=== PATIENT | male | born 1945 | race Caucasian/White ===

== ENCOUNTER → 2020-09-28 | Day surgery (SDC) | payer MEDICARE, OTHER ==
[2020-09-28] VITALS (8 sets, daily range): BP systolic 129–152; BP diastolic 72–85
[~2020-09-28] VITALS: Ht 185.4 cm; Wt 79.4 kg
[~2020-09-28] MED LIST: Acetylcholine Injection (OR) ONE; BSS 15ml BTL ONE; BSS 500ml btl ONE; Bupivacaine 0.75% 30ml vial INJ ONE; Cyclopentolate 2% Opth Sol ONE; ELIQUIS5 MG ORAL; Goniotaire 2.5% Opth Soln - 15ml ONE; Kenalog-40 1ml Vial ONE; LR 1000ml 1,000 ML IVLG SCH; LR 1000ml ONE; Lidocaine 2% MPF 5ml Vial INJ ONE; MULTIVITAMINS1 EAC2 ORAL; Maxitrol Opth Oint 3.5gm ONE; NS Irrig 1000ml ONE; Phenylephrine 2.5% Op 2ml Soln ONE; Povidone-Iodine 5% opth solution ONE; Proparacaine 0.5% Opth Soln 15ml ONE; Proparacaine 0.5% Opth Soln 15ml RIGHT EYE ONE; Proparacaine 0.5% Opth Soln 15ml RIGHT EYE SCH; Sodium Hyaluronate 10 mg/ml 0.85ml ONE; Sterile Water Irrig 1000ml IRRIG ONE; Tetracaine 0.5% Opth 4ml Soln ONE; Tropicamide 1% Opth 15ml Soln ONE; fentaNYL 100 mcg/2 mL IV ONE; fentaNYL 100 mcg/2 mL IV PRN; prednisoLONE acetate 1% Opth Susp 1ml ONE
[2020-09-28] MEDS: Tropicamide 1% Opth 15ml Soln RIGHT EYE SCH ×3 (10:21→10:35)
[2020-09-28] MEDS: Phenylephrine 2.5% Op 2ml Soln RIGHT EYE SCH ×3 (10:21→10:35)
[2020-09-28] MEDS: Cyclopentolate 2% Opth Sol RIGHT EYE SCH ×3 (10:21→10:35)
--- NOTE | 2020-09-28 12:18 | Anethesia Preoperative Eval ---
Anesthesia Pre-op PMH/ROS General Date of Evaluation: Sep 28, 2020 Time of Evaluation: 11:40 Anesthesiologist: Sukhjinder ASA Score: ASA 2 Mallampati Score Class I : Soft palate, uvula, fauces, pillars visible Class II: Soft palate, uvula, fauces visible Class III: Soft palate, base of uvula visible Class IV: Only hard plate visible Mallampati Classification: Class II Surgeon: Toño Diagnosis: R eye retinal detouchment Surgical Procedure: R eye PPV Anesthesia History: none Family History: no anesthesia problems Allergies: Coded Allergies: No Known Allergies (Unverified , 09/28/20) Medications: see eMAR Patient NPO?: Yes Past Medical History Cardiovascular: Reports: arrhythmia - AFib s/p ablasion; Denies: HTN, CAD, [place], valve dz, other Pulmonary: Denies: asthma, COPD, JOHN, other Gastrointestinal/Genitourinary: Reports: GERD, other - kidney stones, prostate CA s/p Sx; Denies: CRI, ESRD Neurologic/Psychiatric: Denies: dementia, CVA, depression/anxiety, TIA, other Endocrine: Denies: DM, hypothyroidism, steroids, other HEENT: Reports: cataract (L), cataract (R) - s/p Sx; Denies: glaucoma, ATQASUK (L), ATQASUK (R), other Hematology/Immune: Denies: anemia, DVT, bleeding disorder, other Musculoskeletal/Integumentary: Reports: OA; Denies: RA, DJD, DDD, edema, other PMH Narrative: as above PSxH Narrative: See H&P Anesthesia Pre-op Phys. Exam Physician Exam Last Vital Signs Date Time Temp Pulse Resp B/P (MAP) Pulse Ox O2 Delivery O2 Flow Rate FiO2 09/28/20 10:24 Room Air 09/28/20 10:23 97.4 58 18 144/85 98 Constitutional: NAD Neurologic: CN 2-12 intact Cardiovascular: RRR, no M/R/G Respiratory: CTA Gastrointestinal: S/NT/ND Airway Exam Mallampati Score: Class II MO: limited Neck: stiff ROM: limited Teeth: missing Dentures: no upper, no lower Anesthesia Pre-op A/P Labs see chart Studies Pre-op Studies: EKG - SB Risk Assessment & Plan Assessment: ASA 2 Plan: MAC with peribulbar block Status Change Before Surgery: No Thom Slaughter MD Sep 28, 2020 12:18
--- NOTE | 2020-09-28 13:28 | Immediate Post-Op Evaluation ---
Immediate Post-Op Evalulation Immediate Post-Op Evalulation Procedure: R eye PPV, laser treatment fluid to gas exchange Date of Evaluation: Sep 28, 2020 Time of Evaluation: 13:27 IV Fluids: 400 Blood Products: none Estimated Blood Loss: min Urinary Output: none Blood Pressure Systolic: 142 Blood Pressure Diastolic: 76 Pulse Rate: 52 Respiratory Rate: 20 O2 Sat by Pulse Oximetry: 99 Temperature (Fahrenheit): 98.1 Pain Score (1-10): 1 Nausea: No Vomiting: No Complications none Patient Status: awake, patent, none Hydration Status: adequate Thom Slaughter MD Sep 28, 2020 13:28
--- NOTE | 2020-09-28 13:55 | Pre-Procedure Note/Attestation ---
Pre-Procedure Note/Attestation Complete Prior to Procedure Planned Procedure: right Procedure Narrative: RRD OD Indications for Procedure Pre-Operative Diagnosis: RRD OD Attestation I attest that I discussed the nature of the procedure; its benefits; risks and complications; and alternatives (and the risks and benefits of such alternatives), prior to the procedure, with the patient (or the patient's legal wireless sales representative). I attest that, if there was a reasonable possibility of needing a blood transfusion, the patient (or the patient's legal wireless sales representative) was given the [facility] standardized written summary, pursuant to the Ritesh Jessica Blood Safety Act ([place] Health and Safety Code # 1645, as amended). I attest that I re-evaluated the patient just prior to the surgery and that there has been no change in the patient's H&P, except as documented below: Jun Lim M.D., MD Sep 28, 2020 13:55
--- NOTE | 2020-09-28 13:57 | 48 Hour Post Anesthesia Eval ---
Post Anesthesia Evaluation Procedure: R eye PPV, laser treatment fluid to gas exchange Date of Evaluation: Sep 28, 2020 Time of Evaluation: 13:54 Blood Pressure Systolic: 134 0: 68 Pulse Rate: 58 Respiratory Rate: 20 Temperature (Fahrenheit): 97.6 O2 Sat by Pulse Oximetry: 98 Airway: patent Nausea: No Vomiting: No Pain Intensity: 1 Hydration Status: adequate Cardiopulmonary Status: stable Mental Status/LOC: patient returned to baseline Follow-up Care/Observations: n/a Post-Anesthesia Complications: none Follow-up care needed: ready to discharge Thom Slaughter MD Sep 28, 2020 13:57
--- NOTE | 2020-09-28 14:05 | Operative Note - PDOC ---
Operative Note Operative Note Pre-op Diagnosis: Retinal detachment, RIGHT EYE Procedure: Procedure: Pars plana vitrectomy, retinotomy, endolaser, air-fluid exchange, C3F8 Gas (14%), RIGHT EYE Post-op Diagnosis: Same Surgeon: Raphael Anesthesia: local Specimen: none Complications: none Condition: stable Estimated Blood Loss: minimal Drains: none Implant(s) used?: No Indications for Procedure Indications for the procedure: The patient has a retinal detachment and presents today for surgery. After review of the risks, benefits, alternative and the patient signed informed consent into the medical chart. Description of Procedure Procedure performed: The patient was met in the pre-op area where informed consent was reviewed. The operative eye was verified, marked and dilated. The patient was transferred to the operative suite, where cardiopulmonary monitoring was established and peribulbar anesthetic was administered without complications. The eye was prepped and draped in sterile ophthalmic fashion. Under microscope visualization the 23 gauge infusion line was placed inferotemporally. After visualization of the tip in the vitreous cavity, the infusion line was turned on. The superotemporal and superonasal cannulas were placed. Under BIOM visualization, vitrectomy was performed to clear the traction from the retina; posterior vitreous detachment was confirmed. Peripheral vitrectomy was performed and shaving of the vitreous traction from the base and the break superotemporal. Superonasal drainage retinotomy was created. Air fluid exchange was performed and the retina reattached. Laser was applied to the retinal break and broadly to areas of lattice and thinning inferior, superonasal and temporal. C3F8 was diluted to 14% and infused into the eye. Subconjunctival vancomycin and dexamethasone were administered. The lid speculum was removed. The eye was cleaned of prep and drape. Atropine drop and Maxitrol ointment was applied. A pressure patch was placed. The patient was turned over to the anesthesia team and transferred in stable condition to the PACU. Jun Lim M.D., MD Sep 28, 2020 14:05
== END | disposition home or self-care (01) ==
LOC: SUR 09:52
DX: H33.41 Traction detachment of retina, right eye (principal); K21.9 Gastro-esophageal reflux disease without esophagitis; M19.90 Unspecified osteoarthritis, unspecified site; Z85.46 Personal history of malignant neoplasm of prostate
CPT/HCPCS: 67108; 94003; J1100; J2704; J3010; J3301; J3370; J3490; J7120; U0004; 94150